=== PATIENT | female | born 1990 | race Caucasian/White ===

== ENCOUNTER 2021-04-17 22:01 | Emergency (ER) | payer OTHER ==
[~2021-04-17] VITALS: Ht 162.6 cm; Wt 78.7 kg
[~2021-04-17 22:01] MED LIST: ASPI-312 PO; IBUP1TAB7 PO; NAPR-837 PO
[2021-04-17 22:03] VITALS: BP 140/61
== END 2021-04-17 22:07 | disposition left against medical advice (07) ==
LOC: M ED 22:01
DX: Z53.21 Procedure and treatment not carried out due to patient leaving prior to being seen by health care provider (principal)

== ENCOUNTER 2023-02-16 13:32 | Inpatient (IN) | payer OTHER, SELFPAY ==
[~2023-02-16] VITALS: Ht 162.6 cm; Wt 75.0 kg
[2023-02-16] MEDS ORDERED: LORazepam 2 MG TAB PO STA (14:03)
[2023-02-16] MEDS ORDERED: NICOTINE POLACRILEX 2 MG GUM PO ONE (14:05)
[2023-02-16 14:53] LABS: HEMATOCRIT 38.7 % (36.0-47.0); MEAN CORPUSCULAR HGB CONC 33.6 g/dl (32.0-36.5); MEAN CORPUSCULAR VOLUME 89.2 fl (80.0-96.0); PLATELET COUNT, AUTOMATED 314 10^3/uL (150-450); RED BLOOD COUNT 4.34 10^6/uL (4.00-5.40); WHITE BLOOD COUNT 8.1 10^3/uL (4.0-10.0)
[2023-02-16 15:07] LABS: BARBITURATES URINE NEGATIVE (NEGATIVE); BENZODIAZEPINES URINE NEGATIVE (NEGATIVE); CANNABINOIDS URINE NEGATIVE (NEGATIVE); COCAINE METABOLITE URINE NEGATIVE (NEGATIVE); METHADONE URINE NEGATIVE (NEGATIVE); OPIATES URINE NEGATIVE (NEGATIVE); PHENCYCLIDINE URINE NEGATIVE (NEGATIVE)
[2023-02-16 15:09] LABS: ETHYL ALCOHOL (ETHANOL) < 0.003 % (0.000-0.010)
[2023-02-16 15:10] LABS: SALICYLATE LEVEL < 3.0 MG/DL (<30)
[2023-02-16 15:11] LABS: ACETAMINOPHEN LEVEL < 2.0 UG/ML (10.0-20.0); ALBUMIN 3.8 G/DL (3.2-5.2); ALKALINE PHOSPHATASE 62 U/L (46-116); ALT/SGPT 15 U/L (7.0-40); AST/SGOT < 8 U/L (<34); BILIRUBIN,DIRECT < 0.1 MG/DL (<0.4); BILIRUBIN,TOTAL 0.2 MG/DL (0.3-1.2); BLOOD UREA NITROGEN 10 MG/DL (9-23); CALCIUM LEVEL 8.7 MG/DL (8.5-10.1); CARBON DIOXIDE LEVEL 25 MMOL/L (20-31); CHLORIDE LEVEL 108 MMOL/L (98-107); CREATININE FOR GFR 0.67 MG/DL (0.55-1.30); GLOMERULAR FILTRATION RATE > 60.0 (>60); GLUCOSE, FASTING 199 MG/DL (60-100); SODIUM LEVEL 140 MMOL/L (136-145); TOTAL PROTEIN 6.6 G/DL (5.7-8.2)
[2023-02-16 15:13] LABS: THYROID STIMULATING HORMONE 1.494 uIU/ML (0.55-4.78)
[2023-02-16 15:18] LABS: AMPHETAMINES LEVEL URINE POSITIVE (NEGATIVE)
[2023-02-16 15:20] LABS: HCG, SERUM QUALITATIVE NEGATIVE (NEGATIVE)
[2023-02-16] MEDS ORDERED: HYDR-3363 PO (16:08)
[2023-02-16] MEDS ORDERED: GABA-282 PO (16:08)
[2023-02-16] MEDS ORDERED: QUET1TAB17 PO (16:08)
[2023-02-16] MEDS ORDERED: BUPR150T12 PO (16:08)
[2023-02-16] MEDS ORDERED: BUPR300T92 PO (16:08)
[2023-02-16] MEDS ORDERED: METH-1164 PO (16:08)
[2023-02-16] MEDS ORDERED: OXYC7.5T3 PO (16:08)
[2023-02-16] MEDS ORDERED: ARIP1TAB6 PO (16:08)
[2023-02-16] MEDS ORDERED: DIAZ10TA2 PO (16:09)
[2023-02-16] MEDS ORDERED: HOME MED LIST COMPLETE! XX SCH (16:15)
[2023-02-16] MEDS ORDERED: MED REC IN PROGRESS XX SCH (16:15)
[2023-02-16 17:06] LABS: HEMOGLOBIN A1c 7.4 % (4.0-6.0)
[2023-02-16] MEDS ORDERED: MOM 30ML SUSPENSION UDC PO PRN (18:20)
[2023-02-16] MEDS ORDERED: OLANZapine ORAL DISINTEGRATING TAB 5MG PO PRN (18:20)
[2023-02-16] MEDS ORDERED: MAALOX 30 ML SUSP *UDC PO PRN (18:20)
[2023-02-16] MEDS ORDERED: ACETAMINOPHEN TAB 650MG DOSE (2X325MG) PO PRN (18:20)
[2023-02-16] MEDS ORDERED: IBUPROFEN 400MG TAB PO PRN (18:20)
[2023-02-16] MEDS ORDERED: diphenhydrAMINE 25MG CAP PO PRN (18:20)
[2023-02-16] MEDS ORDERED: traZODone 50 MG TAB PO PRN (18:20)
[2023-02-16 21:00] VITALS: BP 142/81; TEMP 98.1; O2SAT 97
[2023-02-16] MEDS ORDERED: QUEtiapine FUMARATE 25 MG TAB PO SCH (21:00)
[2023-02-16] MEDS: GABAPENTIN 300 MG CAP PO SCH (22:28)
[2023-02-16] MEDS: QUEtiapine FUMARATE 25 MG TAB PO SCH (22:29)
[2023-02-16] MEDS ORDERED: NICOTINE 21MG/24HR 1 EA TRANSDERMAL TD ONE (23:20)
[2023-02-17 06:15] VITALS: BP 124/82; TEMP 96.9; O2SAT 100
[2023-02-17] MEDS: metFORMIN (GLUCOPHAGE) 500MG TAB PO SCH (08:00)
[2023-02-17] MEDS ORDERED: buPROPion **XL** TABLET 150MG (WELLBUTRIN XL) PO SCH ×4 (09:00)
[2023-02-17] MEDS: GABAPENTIN 300 MG CAP PO SCH ×3 (10:03→20:08)
[2023-02-17] MEDS: buPROPion **XL** TABLET 150MG (WELLBUTRIN XL) PO SCH (10:03)
[2023-02-17] MEDS: NICOTINE 21MG/24HR 1 EA TRANSDERMAL TD SCH (10:34)
[2023-02-17 17:29] VITALS: BP 128/79; TEMP 97.5; O2SAT 98
[2023-02-17] MEDS: methocarbamoL 500 MG TAB PO PRN (19:37)
[2023-02-17] MEDS: QUEtiapine FUMARATE 25 MG TAB PO SCH (20:08)
[2023-02-18 06:20] VITALS: BP 126/81; TEMP 97.5; O2SAT 97
[2023-02-18] MEDS: metFORMIN (GLUCOPHAGE) 500MG TAB PO SCH (08:00)
[2023-02-18] MEDS ORDERED: metFORMIN (GLUCOPHAGE) 500MG TAB PO SCH (08:00)
[2023-02-18] MEDS: methocarbamoL 500 MG TAB PO PRN (08:59)
[2023-02-18] MEDS: GABAPENTIN 300 MG CAP PO SCH (09:00)
[2023-02-18] MEDS: NICOTINE 21MG/24HR 1 EA TRANSDERMAL TD SCH (09:00)
[2023-02-18] MEDS: buPROPion **XL** TABLET 150MG (WELLBUTRIN XL) PO SCH (09:00)
[2023-02-18] MEDS ORDERED: HYDR-3363 PO ×2 (10:46→12:32)
[2023-02-18] MEDS ORDERED: BUPR300T92 PO ×2 (10:46→12:32)
[2023-02-18] MEDS ORDERED: METF10004 PO (10:46)
[2023-02-18] MEDS ORDERED: METH-1164 PO ×2 (10:46→12:32)
[2023-02-18] MEDS ORDERED: BUPR150T12 PO ×2 (10:46→12:32)
[2023-02-18] MEDS ORDERED: ARIP1TAB6 PO (10:46)
[2023-02-18] MEDS ORDERED: GABA-282 PO ×2 (10:46→12:32)
[2023-02-18] MEDS ORDERED: QUET1TAB17 PO (10:46)
[2023-02-18] MEDS ORDERED: METF500T13 PO ×4 (10:46→12:32)
[2023-02-18] MEDS ORDERED: SERO1TAB3 PO (12:32)
[2023-02-18] MEDS ORDERED: METF-877 PO (12:32)
[2023-02-18] MEDS ORDERED: ABIL1TAB11 PO (12:32)
[2023-02-24] MEDS ORDERED: metFORMIN (GLUCOPHAGE) 500MG TAB PO SCH (08:00)
[2023-03-03] MEDS ORDERED: metFORMIN (GLUCOPHAGE) 1000MG TABLET PO SCH (08:00)
== END 2023-02-18 12:22 | disposition home or self-care (01) | DRG 753 ==
LOC: M ED 13:32 → M ED INP 18:20 → M PSY 20:55
PROVIDERS: ADMIT Psychiatry & Neurology Psychiatry; ATTEND Student in an Organized Health Care Education/Training Program
DX: F31.9 Bipolar disorder, unspecified (principal); R45.851 Suicidal ideations; E11.9 Type 2 diabetes mellitus without complications; F22 Delusional disorders; F43.10 Post-traumatic stress disorder, unspecified; F17.210 Nicotine dependence, cigarettes, uncomplicated; F14.90 Cocaine use, unspecified, uncomplicated; F15.90 Other stimulant use, unspecified, uncomplicated; Z79.899 Other long term (current) drug therapy

== ENCOUNTER 2023-10-29 16:51 | Inpatient (IN) | payer OTHER ==
[~2023-10-29] VITALS: Ht 162.6 cm; Wt 79.9 kg
[~2023-10-29 16:51] MED LIST changes: +ABIL1TAB11 PO; +ARIP1TAB6 PO; +BUPR150T12 PO; +BUPR300T92 PO; +DIAZ10TA2 PO; +GABA-282 PO; +HYDR-3363 PO; +METF-877 PO; +METF10004 PO; +METF500T13 PO; +METH-1164 PO; +OXYC7.5T3 PO; +QUET1TAB17 PO; +SERO1TAB3 PO
[2023-10-29] MEDS: BOOSTRIX VACCINE (TETANUS/DIPHTH/ACEL. PERTUSSIS) 0.5ML SYR IM.IMMUN ONE (17:10)
[2023-10-29 17:57] LABS: HEMOGLOBIN 15.3 g/dl (12.0-15.5); MEAN CORPUSCULAR HEMOGLOBIN 30.7 pg (27.0-33.0); MEAN CORPUSCULAR VOLUME 90.2 fl (80.0-96.0); PLATELET COUNT, AUTOMATED 288 10^3/uL (150-450); RED BLOOD COUNT 4.99 10^6/uL (4.00-5.40)
[2023-10-29 18:22] LABS: BARBITURATES URINE NEGATIVE (NEGATIVE)
[2023-10-29 18:23] LABS: AMPHETAMINES LEVEL URINE POSITIVE (NEGATIVE); BENZODIAZEPINES URINE NEGATIVE (NEGATIVE); CANNABINOIDS URINE NEGATIVE (NEGATIVE); COCAINE METABOLITE URINE NEGATIVE (NEGATIVE); METHADONE URINE NEGATIVE (NEGATIVE); OPIATES URINE NEGATIVE (NEGATIVE); PHENCYCLIDINE URINE NEGATIVE (NEGATIVE)
[2023-10-29 18:25] LABS: ETHYL ALCOHOL (ETHANOL) < 0.003 % (0.000-0.010)
[2023-10-29 18:26] LABS: SALICYLATE LEVEL < 3.0 MG/DL (<30)
[2023-10-29 18:27] LABS: ALBUMIN 4.2 G/DL (3.2-5.2); ALKALINE PHOSPHATASE 68 U/L (46-116); ALT/SGPT 26 U/L (7.0-40); AST/SGOT 15 U/L (<34); BILIRUBIN,DIRECT 0.2 MG/DL (<0.4); BILIRUBIN,TOTAL 0.7 MG/DL (0.3-1.2); BLOOD UREA NITROGEN 17 MG/DL (9-23); CALCIUM LEVEL 9.3 MG/DL (8.5-10.1); CARBON DIOXIDE LEVEL 25 MMOL/L (20-31); CHLORIDE LEVEL 103 MMOL/L (98-107); CREATININE FOR GFR 0.63 MG/DL (0.55-1.30); GLOMERULAR FILTRATION RATE > 60.0 (>60); GLUCOSE, FASTING 186 MG/DL (60-100); POTASSIUM SERUM 3.6 MMOL/L (3.5-5.1); SODIUM LEVEL 135 MMOL/L (136-145); TOTAL PROTEIN 7.8 G/DL (5.7-8.2)
[2023-10-29 18:29] LABS: THYROID STIMULATING HORMONE 1.105 uIU/ML (0.55-4.78)
[2023-10-29 18:56] LABS: HCG, SERUM QUALITATIVE NEGATIVE (NEGATIVE)
[2023-10-29] MEDS ORDERED: METF500T13 PO (19:11)
[2023-10-29] MEDS ORDERED: ERGO500029 PO (19:11)
[2023-10-29] MEDS ORDERED: TRAZ-257 PO (19:11)
[2023-10-29] MEDS ORDERED: HYDR-3363 PO (19:11)
[2023-10-29] MEDS ORDERED: MIRT-10 PO (19:11)
[2023-10-29] MEDS ORDERED: ZIPR80CA30 PO (19:11)
[2023-10-29] MEDS ORDERED: DESV50TA3 PO (19:11)
[2023-10-29] MEDS ORDERED: HOME MED LIST COMPLETE! XX SCH (19:15)
[2023-10-29] MEDS: NICOTINE 21MG/24HR 1 EA TRANSDERMAL TD ONE (20:47)
[2023-10-29] MEDS: diphenhydrAMINE 25MG CAP PO ONE (20:47)
[2023-10-30] MEDS: DESVENLAFAXINE ER 50MG TABLET (PRISTIQ) PO SCH (09:00)
[2023-10-30] MEDS: buPROPion **XL** TABLET 150MG (WELLBUTRIN XL) PO SCH ×2 (09:00)
[2023-10-30] MEDS: metFORMIN (GLUCOPHAGE) 500MG TAB PO SCH (09:00)
[2023-10-30] MEDS: ZIPRASIDONE 80 MG CAP (GEODON) PO SCH (13:09)
[2023-10-30] MEDS: GABAPENTIN 300 MG CAP PO SCH (13:10)
[2023-10-30] MEDS: traZODone 50 MG TAB PO SCH (20:47)
[2023-10-30] MEDS: MIRTAZAPINE 15 MG TAB PO SCH (20:47)
[2023-10-31] MEDS: diphenhydrAMINE 25MG CAP PO ONE (01:40)
[2023-10-31] MEDS: NICOTINE 21MG/24HR 1 EA TRANSDERMAL TD SCH (09:41)
[2023-10-31] MEDS ORDERED: IBUPROFEN 400MG TAB PO PRN (12:20)
[2023-10-31 15:40] VITALS: BP 104/63; TEMP 97.9; O2SAT 98
[2023-10-31] MEDS: diphenhydrAMINE 25MG CAP PO PRN (16:40)
[2023-10-31] MEDS: GABAPENTIN 300 MG CAP PO SCH (16:40)
[2023-10-31] MEDS ORDERED: INSU100I16 SC (17:28)
[2023-10-31] MEDS ORDERED: HOME MED LIST COMPLETE! XX SCH (17:30)
[2023-10-31] MEDS: metFORMIN (GLUCOPHAGE) 500MG TAB PO SCH (17:59)
[2023-10-31] MEDS: traZODone 50 MG TAB PO PRN (20:06)
[2023-10-31] MEDS: ZIPRASIDONE 80 MG CAP (GEODON) PO SCH (20:06)
[2023-10-31] MEDS: MIRTAZAPINE 15 MG TAB PO SCH (20:07)
[2023-11-01] MEDS: DESVENLAFAXINE ER 50MG TABLET (PRISTIQ) PO SCH (08:01)
[2023-11-01] MEDS: buPROPion **XL** TABLET 150MG (WELLBUTRIN XL) PO SCH (08:01)
[2023-11-01] MEDS ORDERED: buPROPion **XL** TABLET 150MG (WELLBUTRIN XL) PO SCH (09:00)
[2023-11-01] MEDS: buPROPion **XL** TABLET 150MG (WELLBUTRIN XL) PO ONE (13:10)
[2023-11-01] MEDS: NICOTINE 21MG/24HR 1 EA TRANSDERMAL TD PRN (13:10)
[2023-11-01] MEDS ORDERED: ALCOPAD25 TOP (17:19)
[2023-11-01] MEDS ORDERED: GLUC1TES2 XX (17:19)
[2023-11-01] MEDS ORDERED: METF-839 PO (17:19)
[2023-11-01] MEDS ORDERED: LANC30MI XX (17:19)
[2023-11-01] MEDS ORDERED: BLOOKIT21 XX (17:19)
[2023-11-01 17:39] VITALS: BP 125/75; TEMP 97.7; O2SAT 97
[2023-11-01] MEDS: MUPIROCIN 2% OINT 22 GM TUBE TOP SCH (20:28)
[2023-11-02] MEDS: buPROPion **XL** TABLET 150MG (WELLBUTRIN XL) PO SCH (08:07)
[2023-11-02] MEDS: NICOTINE POLACRILEX 2 MG GUM PO PRN (13:13)
[2023-11-02 17:15] VITALS: BP 142/65; TEMP 97.4; O2SAT 100
[2023-11-02] MEDS: ZIPRASIDONE 20MG CAPSULE (GEODON) PO SCH (17:59)
[2023-11-02] MEDS: ACETAMINOPHEN TAB 650MG DOSE (2X325MG) PO PRN (18:01)
[2023-11-02] MEDS: DESVENLAFAXINE ER 50MG TABLET (PRISTIQ) PO SCH (19:56)
[2023-11-03] MEDS: PROPRANOLOL 10 MG TAB PO SCH (09:00)
[2023-11-03] MEDS: NICOTINE 21MG/24HR 1 EA TRANSDERMAL TD PRN (09:29)
[2023-11-03 10:21] LABS: HEMOGLOBIN A1c 7.4 % (4.0-6.0)
[2023-11-03 10:30] LABS: CHOLESTEROL RISK RATIO 3.5 (<5); HDL CHOLESTEROL 50.2 MG/DL (>40); LDL CHOLESTEROL 96.8 MG/DL (<100); NON-HDL-C 125.8 MG/DL
[2023-11-03 17:37] VITALS: BP 128/85; TEMP 98.3; O2SAT 99
[2023-11-04 16:32] VITALS: BP 130/69; TEMP 98.1; O2SAT 98
[2023-11-05 06:16] VITALS: BP 125/72; TEMP 96.9; O2SAT 96
[2023-11-05] MEDS: MOM 30ML SUSPENSION UDC PO PRN (10:31)
[2023-11-05 14:27] VITALS: BP 131/62; TEMP 97.6; O2SAT 98
[2023-11-05 14:46] VITALS: BP 131/62; TEMP 97.6; O2SAT 98
[2023-11-05] MEDS: IBUPROFEN 400MG TAB PO PRN (15:33)
[2023-11-06] MEDS: MAALOX 30 ML SUSP *UDC PO PRN (10:00)
[2023-11-06] MEDS: IBUPROFEN 400MG TAB PO SCH (12:29)
[2023-11-06 16:26] VITALS: BP 124/70; TEMP 98.3; O2SAT 99
[2023-11-07 06:15] VITALS: BP 136/69; TEMP 97.6; O2SAT 99
[2023-11-07] MEDS ORDERED: TRAZ-257 PO (09:24)
[2023-11-07] MEDS ORDERED: GEOD20CA PO (09:24)
[2023-11-07] MEDS ORDERED: ERGO500029 PO (09:24)
[2023-11-07] MEDS ORDERED: NICO21PAT TD (09:24)
[2023-11-07] MEDS ORDERED: HYDR-3363 PO (09:24)
[2023-11-07] MEDS ORDERED: MIRT-10 PO (09:24)
[2023-11-09] MEDS ORDERED: DESV50TA PO (08:29)
== END 2023-11-07 13:38 | disposition home or self-care (01) | DRG 751 ==
LOC: M ED 16:51 → M ED INP 10-31 12:18 → M PSY 10-31 15:36
PROVIDERS: ADMIT Student in an Organized Health Care Education/Training Program; ATTEND Student in an Organized Health Care Education/Training Program
DX: F33.1 Major depressive disorder, recurrent, moderate (principal); E11.9 Type 2 diabetes mellitus without complications; R45.851 Suicidal ideations; Z91.148 Patient's other noncompliance with medication regimen for other reason; F12.90 Cannabis use, unspecified, uncomplicated; F43.10 Post-traumatic stress disorder, unspecified; F10.10 Alcohol abuse, uncomplicated; F15.90 Other stimulant use, unspecified, uncomplicated; F43.25 Adjustment disorder with mixed disturbance of emotions and conduct; Z59.89 Other problems related to housing and economic circumstances; Z79.899 Other long term (current) drug therapy; F17.200 Nicotine dependence, unspecified, uncomplicated; Z79.4 Long term (current) use of insulin